=== PATIENT | female | born 1980 | race Caucasian/White ===

== ENCOUNTER 2021-01-29 11:56 | Outpatient (REF) | payer OTHER, SELFPAY ==
[2021-01-29 13:55] LABS: MANUAL DIFF FLAG NO
[2021-01-29 14:01] LABS: Basophils Percent Auto 0.3 % (0-2); Eosinophils Absolute Auto 0.2 X10*3/uL (0.0-0.4); Eosinophils Percent Auto 1.5 % (0-4); Hematocrit 44.1 % (37-47); Hemoglobin 14.4 g/dl (12.0-16.0); Imm Gran Abs Auto 0.03 X10*3/uL (0.00-0.03); Imm Gran Pct Auto 0.3 % (0.0-0.4); Lymphocytes Absolute Auto 1.8 X10*3/uL (1.2-4.9); Lymphocytes Percent Auto 16.5 % (20-40); Mean Corpuscular HGB Conc 32.7 g/dl (31.0-35.0); Mean Corpuscular Hemoglobin 32.5 pg (27.0-33.0); Mean Corpuscular Volume 99.5 fL (80-98); Mean Platelet Volume 10.4 fL (9.4-12.3); Monocytes Absolute Auto 0.9 X10*3/uL (0.1-1.2); Neutrophils Absolute Auto 7.9 X10*3/uL (2.0-8.3); Neutrophils Percent Auto 73.4 % (45-73); Platelet Count 287 X10*3/uL (160-400); Red Blood Count 4.43 X10*6/uL (4.20-5.50); Red Cell Distribution Width 15.3 % (11.0-16.0); White Blood Count 10.8 X10*3/uL (4.8-10.8)
[2021-01-29 14:10] LABS: Glucose Urine UA NEG (NEG); Leukocyte Esterase Urine NEG (NEG); Nitrite Urine NEG (NEG); PH 6.5 (5.0-8.0); Urine Blood 3+ (NEG); Urine Ketones NEG (NEG); Urine Protein NEG (NEG-TRACE)
[2021-01-29 14:17] LABS: Appearance Urine HAZY; Color Urine YELLOW
[2021-01-29 14:32] LABS: Alanine Aminotransferase 15 U/L (0-31); Albumin Level 4.8 g/dL (3.5-5.0); Alkaline Phosphatase 73 U/L (39-117); Anion Gap 18 (12-20); Aspartate Amino Transferase 26 U/L (5-31); Bilirubin Total 0.3 mg/dL (0.0-1.0); Blood Urea Nitrogen 13 mg/dL (9-16); Calcium 9.6 mg/dL (8.4-10.2); Carbon Dioxide 22 mmol/L (22-29); Chloride 103 mmol/L (96-108); Cholesterol 189 mg/dL; Estimated Glomerular Filt Rate > 60; Glucose Fasting 64 mg/dL (60-99); HDL Cholesterol 73 mg/dL; LDL Cholesterol Calculated 99 mg/dl; Potassium 4.7 mmol/L (3.3-5.1); Sodium 138 mmol/L (135-145); Total Protein 8.1 g/dL (6.5-8.0); Triglycerides 86 mg/dL
[2021-01-29 14:41] LABS: Mucus Urine 1+ /LPF; Squamous Epithelial Cell Urine 1+ /LPF
[2021-01-29 14:49] LABS: TSH reflex Free T4 0.62 uIU/mL (0.32-4.0)
== END 2021-01-29 11:57 | disposition home or self-care (01) ==
LOC: HO.HMGCLDS 11:56
PROVIDERS: PCP Internal Medicine; Visit Provider Internal Medicine
DX: Z00.00 Encounter for general adult medical examination without abnormal findings (principal); N63.0 Unspecified lump in unspecified breast; L50.9 Urticaria, unspecified; K42.9 Umbilical hernia without obstruction or gangrene; Z13.220 Encounter for screening for lipoid disorders; Z13.29 Encounter for screening for other suspected endocrine disorder
CPT/HCPCS: 36415; 80053; 80061; 81001; 84443; 85025

== ENCOUNTER 2021-03-03 14:27 | Outpatient (REF) | payer OTHER, SELFPAY ==
--- NOTE | ~2021-03-03 | MM_ITS ---
EXAMINATION: MM DIAGNOSTIC DIGITAL BREAST TOMOSYNTHESIS, BILATERAL US DIAGNOSTIC ULTRASOUND BREAST, RIGHT CLINICAL INFORMATION: Probable nodule noted by patient posterior upper outer right breast near axilla. Family history breast cancer in maternal grandmother. The lifetime risk of breast cancer based on the Tyrer-Cuzick Model is 18%. COMPARISON: Prior exam 05/08/2007 purged. Current study represents new baseline. TECHNIQUE: Digital breast tomosynthesis is performed in both the craniocaudal and mediolateral oblique views along with computer-aided detection (CAD). Synthesized 2D images are generated from the tomosynthesis. Additional exaggerated right CC view is provided. Ultrasound right breast is targeted to the area of clinical concern posterior upper outer right breast near the axilla. Patient is able to point to area of palpable concern at time of imaging. Grayscale imaging and color Doppler are performed without and with harmonics. FINDINGS: The breasts are extremely dense, which lowers the sensitivity of mammography (ACR BI-RADS breast composition Category d). There are no significant masses, abnormal calcifications, or other abnormalities. The axilla and skin contours are unremarkable. The symptom marker overlies small axillary node. Targeted right breast ultrasound demonstrates a small benign node at site of palpable concern 10:00 position with normal darwin architecture and normal color flow. Overall size is only 0.3 x 0.9 cm. There is no skin thickening or edema tracking in soft tissue planes. No hyperemia. No solid or cystic mass. Results are discussed with the patient at time of visit. MM/MM tomosynthesis diagnostic BI IMPRESSION: 1. No mammographic evidence of malignancy. 2. Small benign node at site of palpable concern right breast measuring 0.3 x 0.9 cm. ASSESSMENT: BI-RADS 2: Benign RECOMMENDATION: Routine annual mammography screening. This patient's information was entered into a reminder system with a target due date for their next mammogram.
== END 2021-03-03 14:28 | disposition home or self-care (01) ==
LOC: HO.MAMMO 14:27
PROVIDERS: Visit Provider Internal Medicine
DX: N63.11 Unspecified lump in the right breast, upper outer quadrant (principal)
CPT/HCPCS: 76642; 77062; 77066

== ENCOUNTER 2023-09-21 11:05 | Outpatient (REF) | payer OTHER, SELFPAY ==
[2023-09-21 13:23] LABS: MANUAL DIFF FLAG NO
[2023-09-21 13:31] LABS: Basophils Percent Auto 0.4 % (0-2); Eosinophils Absolute Auto 0.2 X10*3/uL (0.0-0.4); Eosinophils Percent Auto 2.2 % (0-4); Hematocrit 41.2 % (37.0-47.0); Hemoglobin 13.7 g/dl (12.0-16.0); Imm Gran Abs Auto 0.01 X10*3/uL (0.00-0.03); Imm Gran Pct Auto 0.1 % (0.0-0.4); Lymphocytes Absolute Auto 1.8 X10*3/uL (1.2-4.9); Lymphocytes Percent Auto 20.7 % (20-40); Mean Corpuscular HGB Conc 33.3 g/dl (31.0-35.0); Mean Corpuscular Hemoglobin 31.2 pg (27.0-33.0); Mean Corpuscular Volume 93.8 fL (80.0-98.0); Mean Platelet Volume 10.9 fL (9.4-12.3); Monocytes Absolute Auto 0.6 X10*3/uL (0.1-1.2); Monocytes Percent Auto 6.8 % (2-11); Neutrophils Absolute Auto 5.9 x10*3/uL (2.0-8.3); Neutrophils Percent Auto 69.8 % (45-73); Platelet Count 261 X10*3/uL (160-400); Red Blood Count 4.39 X10*6/uL (4.20-5.50); Red Cell Distribution Width 13.7 % (11.0-16.0); White Blood Count 8.5 X10*3/uL (4.8-10.8)
[2023-09-21 14:13] LABS: Alanine Aminotransferase 9 U/L (0-31); Albumin Level 4.2 g/dL (3.5-5.0); Alkaline Phosphatase 60 U/L (39-117); Anion Gap 10 (12-20); Aspartate Amino Transferase 20 U/L (5-31); Bilirubin Total 0.4 mg/dL (0.0-1.0); Blood Urea Nitrogen 8 mg/dL (9-16); Calcium 9.2 mg/dL (8.4-10.2); Carbon Dioxide 26 mmol/L (22-29); Chloride 105 mmol/L (96-108); Cholesterol 159 mg/dL (<200); Estimated Glomerular Filt Rate > 60; Glucose Fasting 139 mg/dL (60-99); HDL Cholesterol 54 mg/dL (>40); LDL Cholesterol Calculated 94 mg/dL (<100); Potassium 3.8 mmol/L (3.3-5.1); Sodium 137 mmol/L (135-145); TSH reflex Free T4 0.33 uIU/mL (0.32-4.0); Total Protein 7.1 g/dL (6.5-8.0); Triglycerides 56 mg/dL (<150)
== END 2023-09-21 11:06 | disposition home or self-care (01) ==
LOC: HO.HMGCLDS 11:05
PROVIDERS: PCP Internal Medicine; Visit Provider Internal Medicine
DX: Z00.00 Encounter for general adult medical examination without abnormal findings (principal)
CPT/HCPCS: 36415; 80053; 80061; 84443; 85025

== ENCOUNTER 2024-01-02 13:15 | Outpatient (AMB) | payer OTHER, SELFPAY ==
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
[2024-01-02 13:17] VITALS: BP 94/62; PULSE 101; O2SAT 97; BMI 18.1
== END 2024-01-02 14:27 | disposition home or self-care (01) ==
PROVIDERS: PCP Internal Medicine; Visit Provider Internal Medicine
DX: Z00.00 Encounter for general adult medical examination without abnormal findings (principal); M54.50 Low back pain, unspecified; F41.9 Anxiety disorder, unspecified; F32.9 Major depressive disorder, single episode, unspecified; R10.9 Unspecified abdominal pain; R73.9 Hyperglycemia, unspecified; E55.9 Vitamin D deficiency, unspecified
CPT/HCPCS: 96127; 99396

== ENCOUNTER 2024-01-02 14:25 | Outpatient (REF) | payer OTHER, SELFPAY ==
[2024-01-08 11:04] LABS: HPV mRNA E6/E7 Detected (Not Detected)
== END 2024-01-02 14:26 | disposition home or self-care (01) ==
LOC: HO.LNP 14:25
PROVIDERS: Visit Provider Internal Medicine
DX: Z12.4 Encounter for screening for malignant neoplasm of cervix (principal); Z11.51 Encounter for screening for human papillomavirus (HPV)
CPT/HCPCS: 87624; 88142

== ENCOUNTER 2024-02-23 17:41 | Emergency (ER) | payer OTHER, SELFPAY ==
[2024-02-23 18:55] VITALS: BP 110/76; PULSE 85; RESP 18; TEMP 37.1; O2SAT 98; BMI 17.8
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
[2024-02-23 19:16] LABS: MANUAL DIFF FLAG NO
[2024-02-23 19:34] LABS: Basophils Percent Auto 0.2 % (0-2); Eosinophils Percent Auto 0.2 % (0-4); Hematocrit 42.4 % (37.0-47.0); Hemoglobin 14.4 g/dl (12.0-16.0); Imm Gran Abs Auto 0.06 X10*3/uL (0.00-0.03); Imm Gran Pct Auto 0.4 % (0.0-0.4); Lymphocytes Absolute Auto 1.9 X10*3/uL (1.2-4.9); Lymphocytes Percent Auto 11.9 % (20-40); Mean Corpuscular Hemoglobin 31.4 pg (27.0-33.0); Mean Corpuscular Volume 92.6 fL (80.0-98.0); Mean Platelet Volume 10.1 fL (9.4-12.3); Monocytes Absolute Auto 0.9 X10*3/uL (0.1-1.2); Monocytes Percent Auto 5.7 % (2-11); Neutrophils Absolute Auto 13.3 x10*3/uL (2.0-8.3); Neutrophils Percent Auto 81.6 % (45-73); Platelet Count 214 X10*3/uL (160-400); Red Blood Count 4.58 X10*6/uL (4.20-5.50); Red Cell Distribution Width 14.4 % (11.0-16.0); White Blood Count 16.2 X10*3/uL (4.8-10.8)
[2024-02-23 19:38] LABS: Alanine Aminotransferase 15 U/L (0-31); Albumin Level 4.2 g/dL (3.5-5.0); Alkaline Phosphatase 73 U/L (39-117); Anion Gap 14 (12-20); Aspartate Amino Transferase 18 U/L (5-31); Bilirubin Total 0.4 mg/dL (0.0-1.0); Blood Urea Nitrogen 7 mg/dL (9-16); Calcium 9.3 mg/dL (8.4-10.2); Carbon Dioxide 25 mmol/L (22-29); Chloride 104 mmol/L (96-108); Creatinine Clr Calc Pharmacy 79.9; Estimated Glomerular Filt Rate > 60; Glucose Random 84 mg/dL (60-115); Potassium 3.7 mmol/L (3.3-5.1); Sodium 139 mmol/L (135-145); Total Protein 7.1 g/dL (6.5-8.0)
[2024-02-23 21:57] VITALS: BP 99/59; PULSE 68; RESP 19; TEMP 36.8; O2SAT 97
[2024-02-23] MEDS: Fluconazole 150 MG TABLET PO (23:13)
[2024-02-23] MEDS: cephALEXin 500 MG CAPSULE 1000 MG PO (23:13)
[2024-02-23 23:20] LABS: C Reactive Protein 0.35 mg/dL (< or = 0.50)
[2024-02-23] MEDS: Ondansetron ODT 4 MG TAB.RAPDIS TRANSLINGU (23:25)
[2024-02-23 23:31] VITALS: BP 107/60; PULSE 71; RESP 16; TEMP 37; O2SAT 100
== END 2024-02-23 23:33 | disposition home or self-care (01) ==
PROVIDERS: Physician Assistant; Emergency Provider Emergency Medicine
DX: B35.3 Tinea pedis (principal)
CPT/HCPCS: 36415; 80053; 85025; 86140; 99282; 99283

== ENCOUNTER 2024-03-29 20:33 | Emergency (ER) | payer OTHER, SELFPAY ==
--- NOTE | ~2024-03-29 | XR_ITS ---
EXAMINATION: XR LUMBOSACRAL SPINE CLINICAL INFORMATION: Fall. Pain. COMPARISON: Lumbar spine radiographs dated 09/18/2018. TECHNIQUE: Three views of the lumbosacral spine. FINDINGS: There is lumbar scoliosis, concave towards the right side. The degree of curvature appears similar to that seen on the 09/18/2018 radiographs. In the sagittal projection there is grade 1 anterolisthesis of L4 in relation to L5. There is retrolisthesis of L3 in relation to L4 and retrolisthesis of L2 in relation to L3. There is multilevel degenerative disc disease most pronounced at L4-L5 and L5-S1. There is facet arthropathy. Vertebral body heights are maintained. No definite acute fracture is identified. The sacroiliac joints appear maintained. XR/XR lumbar spine 2-3V IMPRESSION: No convincing acute osseous lumbar spine abnormality. There is grossly stable levoscoliosis of the lumbar spine. Multilevel degenerative disc disease is demonstrated and appears to have progressed since the prior examination.
[2024-03-29 20:59] VITALS: BP 128/75; PULSE 72; RESP 20; TEMP 36.6; O2SAT 99; BMI 17.4
--- NOTE | 2024-03-29 22:26 | ED_ITS ---
HPI - Fall General Chief Complaint: Fall Stated Complaint: fell on tuesday Time Seen by Provider: 03/29/24 22:26 Source: patient Mode of arrival: ambulatory History of Present Illness ED Provider: Marine Major PA-C HPI Narrative: 43 yo female with history of sciatica presents for evaluation of lower back pain s/p mechanical fall on Sunday 03/25. The patient states she was running sideways and tripped over a curb, causing her to fall backwards over a concrete parking block into a parked car. She states she hit the right side of her back against the car. She denies head trauma or additional injuries. Not on blood thinners. She is tearful at bedside and describes the pain as 10/10. The pain radiates into bilateral lower extremities and she endorses associated paresthesias. 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 Pain increases with any sort of movement. States she has not been able to sleep due to the pain. She has taken Aleve with no relief. Last dose was Tuesday. She has tried heat and ice with no relief. She denies additional symptoms at this time. MD complaint: fall Onset (ago): day(s) Fall from: other (Running and tripped ) Place fall occurred: street Loss of consciousness: none Prolonged down time: no Symptoms prior to fall: none Context: tripped/slipped Location of injury: back Severity: severe Severity scale (1-10): 10 Associated symptoms (after fall): numbness Related Data Previous Rx's ?Medication ?Instructions ?Recorded hydroxyzine HCl 10 mg tablet 10 mg PO TID PRN anxiety #10 tabs 03/24/22 trazodone 50 mg tablet 50 mg PO BEDTIME PRN insomnia #90 02/02/23 tabs buspirone 15 mg tablet 15 mg PO BID #180 tabs 01/02/24 citalopram 20 mg tablet 20 mg PO DAILY #90 tabs 01/02/24 clobetasol 0.05 % topical cream 1 appl topical DAILY #45 grams 01/02/24 cephalexin 500 mg capsule 500 mg PO QID 7 days #28 caps 02/23/24 miconazole nitrate 2 % topical 1 appl topical BID #30 grams 02/23/24 cream (Antifungal (miconazole)) ondansetron 4 mg disintegrating 4 mg PO Q8H PRN nausea and 02/23/24 tablet vomiting #7 tabs cyclobenzaprine 10 mg tablet 10 mg PO TID PRN muscle spasm #14 03/30/24 tabs lidocaine 5 % topical patch 1 patch topical DAILY #15 ea 03/30/24 Allergies Allergy/AdvReac Type Severity Reaction Status Date / Time aspirin Allergy Unknown Hives Verified 03/29/24 21:05 Review of Systems Review of Systems: Yes all other systems are reviewed and are negative [facility] Past Medical History Medical History Umbilical hernia Hives Breast lump Annual physical exam Anxiety and depression Chronic lower back pain Knee fracture, right Migraine Family History Family History Paternal Grandmother Breast cancer Depression Sister No problems noted. Sister No problems noted. Son No problems noted. Maternal Aunt Breast cancer Social History Social History Housing: Apartment Patient Tobacco Use Status: Current everyday Tobacco user Tobacco use type: Cigarette Cigarettes Per Day: 20 Smoked in Last 30 Days: Yes e-Cigarette/Vaping Use: Never Used Substance Use Type: Marijuana Substance Use Frequency: Daily Advance Directives: No Advance Directives Information Provided: No Do you have a plan to hurt others: No Plan Patient : No Current occupational status: unemployed Cognitive needs: No Hearing needs: No Vision needs: Yes Physical Exam Vital Signs: Vital Signs: Last Vital Signs Temp 97.0 F 03/30/24 01:26 Pulse 54 03/30/24 01:26 Resp 16 03/30/24 01:26 BP 106/62 03/30/24 01:26 Pulse Ox 98 03/30/24 01:26 O2 Del Method Room Air 03/30/24 01:26 BMI result Body Mass Index 17.4 Appearance: Alert. Oriented X3. No acute distress. Appears uncomfortable. Tearful lying in ED stretcher. Head: normocephalic, atraumatic. Eyes: Pupils equal, round and reactive to light. ENT: Pharynx normal. Neck: Normal inspection. Neck supple. CVS: Normal heart rate and rhythm. Pulses normal. Respiratory: No respiratory distress. Abdomen: Soft and nontender. Skin: Skin warm and dry. Normal skin color. Normal skin turgor. No rashes. Extremities: No lower extremity edema. No joint swelling. Tenderness to palpation diffusely from thoracic to lumbosacral region. No erythema, edema, or ecchymosis. Neuro/psych: Oriented X 3. No motor deficit. No sensory deficit. CN II-XII intact. Normal speech and cognition. Medications Administered Discontinued Medications Generic Name Dose Route Start Last Admin Trade Name Jonny PRN Reason Stop Dose Admin Acetaminophen 975 mg 03/29/24 22:35 03/29/24 23:14 Acetaminophen 325 Mg Tablet PO 03/29/24 22:36 975 mg ONCE ONE Administration Cyclobenzaprine HCl 10 mg 03/30/24 00:16 03/30/24 00:47 Cyclobenzaprine Hcl 10 Mg Tablet PO 03/30/24 00:17 10 mg ONCE ONE Administration Lidocaine 1 patch 03/29/24 22:35 03/29/24 23:14 Lidocaine 4 % Patch Adh..Patch TRANSDERMA 03/29/24 22:36 1 patch ONCE ONE Administration Protocol Oxycodone HCl 5 mg 03/29/24 22:35 03/29/24 23:14 Oxycodone Hcl Immed Release 5 Mg Tablet PO 03/29/24 22:36 5 mg ONCE ONE Administration Oxycodone HCl 5 mg 03/30/24 00:16 03/30/24 00:48 Oxycodone Hcl Immed Release 5 Mg Tablet PO 03/30/24 00:17 5 mg ONCE ONE Administration Medical Decision Making Medical Decision Making MDM Narrative: 43 yo female with history of sciatica presents for evaluation of lower back pain s/p mechanical fall on Sunday 03/25. The patient states she was running sideways and tripped over a curb, causing her to fall backwards over a concrete parking block into a parked car. She states she hit the right side of her back against the car. Patient describes 10/10 pain. Vitals within normal limits. Lumbar spine x-ray revealed no acute abnormalities. Stable levoscoliosis of the lumbar spine and multilevel degenerative disc disease. patient required 2 doses of oxycodone and Flexeril for her pain to be under control. She was feeling better After medication. She is stable for discharge home, most likely muscular strain and spasm. No evidence of acute trauma on exam. Differential Diagnosis Differential Diagnoses: The differential diagnosis associated with the presentation includes Lumbar strain, lumbar contusion, sciatica. Low suspicion for spinal hematoma. Independent Interpretation I performed an independent interpretation of an: Plain X-Ray Interpretation: No acute fracture, agree with radiology read Radiology Impression Discussion of test interpretation with radiology: I have reviewed the radiologist's reading. Radiologist Impression: EXAMINATION: XR LUMBOSACRAL SPINE CLINICAL INFORMATION: Fall. Pain. COMPARISON: Lumbar spine radiographs dated 09/18/2018. TECHNIQUE: Three views of the lumbosacral spine. FINDINGS: There is lumbar scoliosis, concave towards the right side. The degree of curvature appears similar to that seen on the 09/18/2018 radiographs. In the sagittal projection there is grade 1 anterolisthesis of L4 in relation to L5. There is retrolisthesis of L3 in relation to L4 and retrolisthesis of L2 in relation to L3. There is multilevel degenerative disc disease most pronounced at L4-L5 and L5-S1. There is facet arthropathy. Vertebral body heights are maintained. No definite acute fracture is identified. The sacroiliac joints appear maintained. XR/XR lumbar spine 2-3V IMPRESSION: No convincing acute osseous lumbar spine abnormality. There is grossly stable levoscoliosis of the lumbar spine. Multilevel degenerative disc disease is demonstrated and appears to have progressed since the prior examination. External Record Review External record reviewed: Office record, Outpatient record and Prior outpatient labs Tests considered The following testing was considered but not selected: CT scan of the abdomen and pelvis was considered to assess for traumatic internal injuries/ RP hematoma however exam, mechanism, vital signs, time frame not consistent with this Prescription Management I considered prescription management with: Pain Medication Critical Care Time Critical Care Time Critical Care Time: No Discharge Plan Discharge Clinical Impression: Acute lumbar myofascial strain Qualifiers: Encounter type: initial encounter Qualified Code(s): S39.012A - Strain of muscle, fascia and tendon of lower back, initial encounter Patient Disposition: Home, Self-Care Instructions: Low Back Strain (ED), Lower Back Exercises (ED) Additional Instructions: Your x-ray today did not show any broken bones or evidence of traumatic injury. Your pain is most likely due to muscle strain and spasm. Minimize bending, lifting or twisting. Use ice several times per day for 20 minutes at a time for the next 48 hours and then change to heat. Take medications as prescribed to help with pain and discomfort. Follow up with your Primary Care Doctor this week. If your pain worsens, if you develop new numbness, tingling, weakness, loss of function or incontinence call 911 or come back to the ER right away for evaluation. Prescriptions: New cyclobenzaprine 10 mg tablet 10 mg PO TID PRN (Reason: muscle spasm) Qty: 14 0RF lidocaine 5 % adhesive patch,medicated 1 patch topical DAILY Qty: 15 0RF Rx Instructions: leave on most painful area for up to 12 hrs No Action hydroxyzine HCl 10 mg tablet 10 mg PO TID PRN (Reason: anxiety) Qty: 10 0RF trazodone 50 mg tablet 50 mg PO BEDTIME PRN (Reason: insomnia) Qty: 90 3RF miconazole nitrate [Antifungal (miconazole)] 2 % cream 1 appl topical BID Qty: 30 0RF cephalexin 500 mg capsule 500 mg PO QID 7 Days Qty: 28 0RF ondansetron 4 mg tablet,disintegrating 4 mg PO Q8H PRN (Reason: nausea and vomiting) Qty: 7 0RF buspirone 15 mg tablet 15 mg PO BID Qty: 180 4RF citalopram 20 mg tablet 20 mg PO DAILY Qty: 90 3RF clobetasol 0.05 % cream 1 appl topical DAILY Qty: 45 2RF Referrals: Barb Campos MD [Primary Care Provider] - Stand Alone Forms: Work/School Release Interventions: ED Discharge Assessment Last Done: 03/30/24 01:26 Discharge Date/Time: 03/30/24 01:27 Print Language: Hungarian
[2024-03-29] MEDS: Lidocaine 4 % Patch ADH..PATCH 1 PATCH TRANSDERMA (23:14)
[2024-03-29] MEDS: Acetaminophen 325 MG TABLET 975 MG PO (23:14)
[2024-03-29] MEDS: oxyCODONE HCl Immed Release 5 MG TABLET PO (23:14)
[2024-03-30 00:11] VITALS: BP 105/66; PULSE 56; RESP 16; TEMP 36.7; O2SAT 100
[2024-03-30] MEDS: Cyclobenzaprine HCl 10 MG TABLET PO (00:47)
[2024-03-30] MEDS: oxyCODONE HCl Immed Release 5 MG TABLET PO (00:48)
[2024-03-30 01:15] VITALS: BP 106/62; PULSE 54; RESP 16; TEMP 36.1; O2SAT 98
[2024-03-30 01:26] VITALS: BP 106/62; PULSE 54; RESP 16; TEMP 36.1; O2SAT 98
== END 2024-03-30 01:27 | disposition home or self-care (01) ==
PROVIDERS: Emergency Provider Emergency Medicine; PCP Internal Medicine
DX: S39.012A Strain of muscle, fascia and tendon of lower back, initial encounter (principal); W01.0XXA Fall on same level from slipping, tripping and stumbling without subsequent striking against object, initial encounter; Y93.9 Activity, unspecified; Y92.9 Unspecified place or not applicable; Y99.9 Unspecified external cause status
CPT/HCPCS: 72100; 99283; 99284

== ENCOUNTER 2025-01-28 09:07 | Outpatient (AMB) | payer OTHER, SELFPAY ==
[2025-01-28 09:11] VITALS: BP 120/66; PULSE 77; RESP 16; TEMP 36.9; O2SAT 97; BMI 17.9
--- NOTE | 2025-01-28 09:11 | MHC.PC.OV ---
Vital Signs 01/28/25 09:11 Height 5 ft 6 in Weight 111 lb BMI 17.9 BP 120/66 Blood Pressure Location Rt brachial Position Sitting Respiration 16 Pulse 77 Pulse Source Pulse Oximeter Temp 98.4 F Temp Source Oral Pulse Oximetry (%) 97 Oxygen Delivery Method Room Air Intake Visit Reasons: Menopause Intake Note: Pt is here today for a sick visit. Pt c/o menopause symptoms. Pt states that she tried estradiol patches and they have been working well.Pt also states that she has lower back pain that goes down her legs. Allergies aspirin Allergy (Unknown, Verified 01/28/25 09:11) Hives Medication List - Last Reconciled 01/28/25 by Barb Campos MD buspirone 15 mg PO BID citalopram 20 mg PO DAILY lidocaine 5% 1 patch topical DAILY trazodone 50 mg PO BEDTIME PRN Tobacco use date assessed: 01/28/25 Dental Screening Dental Screen Date: 01/28/25 Did you have a dental visit in the last 12 months?: Yes Did you have a dental problem in the last 6 months where you did not have access to dental care?: No Was dental information given to patient?: Patient has dentist HPI Menopause HPI Details Patient presents complaining of worsening hot flashes night sweats insomnia. She had try [id number] Estroven and herbal remedies without improvement. Her last menstrual period was over 7 months ago. Patient would like to try hormonal replacement. Chronic anxiety and depression are stable on current medications.. Patient complains of chronic lower back pain radiating to both lower extremities worse when waking up in the morning. She will try physical therapy without significant improvement. She denies any weakness or numbness in lower extremities change in bladder or bowel function. [facility] Medical History Umbilical hernia Hives Breast lump Annual physical exam Anxiety and depression Chronic lower back pain Knee fracture, right Migraine Family History Paternal Grandmother Breast cancer Depression Sister No problems noted. Sister No problems noted. Son No problems noted. Maternal Aunt Breast cancer Social History (Updated 01/28/25 @ 18:49 by Barb Campos MD) Housing: Apartment Patient Tobacco Use Status: Former Tobacco user Tobacco use type: Cigarette Cigarettes Per Day: 20 e-Cigarette/Vaping Use: Never Used Substance Use Type: Marijuana Current occupational status: unemployed Cognitive needs: No Hearing needs: No Vision needs: Yes Questionnaire PHQ-9 Over the last 2 weeks, how often have you been bothered by any of the following problems? 1. Little interest or pleasure in doing things: not at all 2. Feeling down, depressed, or hopeless: more than half the days 3. Trouble falling or staying asleep, or sleeping too much: nearly every day 4. Feeling tired or having little energy: several days 5. Poor appetite or overeating: not at all 6. Feeling bad about yourself - or that you are a failure or have let yourself or your family down: not at all 7. Trouble concentrating on things, such as reading the newspaper or watching television: more than half the days 8. Moving or speaking so slowly that other people could have noticed. Or the opposite - being so fidgety or restless that you have been moving around a lot more than usual: not at all 9. Thoughts that you would be better off or of hurting yourself in some way: not at all Total score: 8 Depression Screening Interpretation: Negative Depression Screening Done: Yes 22098 - PHQ-9 Billing: Yes Source: Developed by Drs. Fransisco Guerra, Ling Gil, Juan Carlos Natarajan and colleagues, with an educational niko from [employer]. Thrive Questionnaire Date Thrive assessed: 01/28/25 I am a: Patient What is your living situation today?: I have a steady place to live Within the past 12 months, did the food you bought not last and you didn't have the money to get more?: Sometimes True Within the past 12 months, did you worry whether your food would run out before you got money to buy more?: Sometimes True Do you have trouble paying for medicines?: No Do you have trouble getting transportation to medical appointments?: No Do you have trouble paying your heating and electricity bill?: No Do you have trouble taking care of your child, family member or friend?: No Do you have trouble with day-to-day activities such as bathing, preparing meals, shopping, managing finances, etc.?: No Are you currently unemployed and looking for a job?: Yes Are you interested in more education?: No Please select the resources that you would like help with: Housing/Intermediate, Food, Utilities and Job search/training Currently or been in a relationship where the following occur: No concerns reported THRIVE Score: 2 AUDIT C Alcohol Use Questionnaire (AUDIT-C) 1. How often do you have a drink containing alcohol?: 2-3 times a week 2. How many drinks containing alcohol do you have on a typical day when you are drinking?: 1 or 2 3. How often do you have six or more drinks on one occasion?: Less than monthly Total Score: 4 SHAD-7 AMB Questionnaire SHAD-7 Date SHAD - 7 assessed: 01/28/25 Feeling nervous, anxious, or on edge: 3 = Nearly every day Not being able to stop or control worryin = Nearly every day Worrying too much about different things: 3 = Nearly every day Trouble relaxin = Nearly every day Being so restless that it is hard to sit still: 3 = Nearly every day Becoming easily annoyed or irritable: 3 = Nearly every day Feeling afraid as if something awful might happen: 0 = Not at all Total SHAD-7 score (0-4 normal; 5-9 mild; 10-14 moderate; 15-21 severe): 18 Source: Developed by Drs. Fransisco Guerra, Ling Gil, Juan Carlos Natarajan and colleagues, with an educational niko from [employer]. SHAD-7 Assessment Billing SHAD-7 Assessment Tool: SHAD-7 Assessment 20325 Review of Systems Const All systems reviewed & are unremarkable except as noted in HPI and below Eyes Reports no additional complaints ENT Reports no additional complaints Card Reports no additional complaints Resp Reports no additional complaints GI Reports no additional complaints Reports no additional complaints Physical exam (Primary Care) Vital Signs: Last Vital Signs Temp 98.4 F 01/28/25 09:11 Pulse 77 01/28/25 09:11 Resp 16 01/28/25 09:11 BP 120/66 01/28/25 09:11 Pulse Ox 97 01/28/25 09:11 Oxygen Delivery Method Room Air 01/28/25 09:11 BMI result Body Mass Index 17.9 Tobacco/Smoking Status: Tobacco use Status Tobacco use date assessed 01/28/25 01/28/25 09:22 Patient Tobacco Use Status Current everyday Tobacco 01/28/25 09:22 Tobacco use type Cigarette 01/28/25 09:22 e-Cigarette/Vaping Use Never Used 01/28/25 09:22 PHQ-9: PHQ-9 Score PHQ-9: Total score 8 01/28/25 09:22 Depression Screening Interpretation: Negative Thrive Assessment: Date of Thrive Assessment Date Thrive assessed 01/28/25 01/28/25 09:22 Currently or been in a relationship where the following occur: No concerns reported Const General: no acute distress HENMT Head: Yes normal to inspection Face and sinus: Yes normal facial exam Eyes General: appearance normal, both eyes and all related structures Resp Effort & Inspection: normal respiratory effort Auscultation: clear to auscultation bilaterally Cardio Rhythm: regular rhythm Heart sounds: S1 normal heart sound present and S2 normal heart sound present GI Inspection: Yes normal to inspection Palpation (GI): Soft to palpation Back/Spine/Pelvis Other: There is paraspinal tenderness lower lumbar region, straight leg rising 90 degrees bilaterally. Deep tendon reflexes 1+ bilaterally Coding Level of Care Code Est Pt Level 4 (09978) Diagnoses Degenerative joint disease (DJD) of lumbar spine M47.816 Menopause Z78.0 Additional Codes SHAD-7 Assessment Billing - SHAD-7 Assessment Tool: SHAD-7 Assessment 95908 ([id number]) PHQ-9 - 43792 - PHQ-9 Billing: Yes ([id number]) Assessment & Plan Assessment & Plan (1) Degenerative joint disease (DJD) of lumbar spine: Comment: L spine XR multiple-level degenerative changes 03/2024 Code(s): M47.816 - Spondylosis without myelopathy or radiculopathy, lumbar region Category: Medical Plan: Referred to [email or web address] (2) Menopause: Code(s): Z78.0 - Asymptomatic menopausal state Category: Medical Plan: She will Start estradiol 0.025 mg weekly with progesterone 100 mg daily. Patient was advised that smoking increases her risk of a complications including MO and stroke, patient will return for physical in a Pap smear in 1 month with a fasting blood work before Orders: Orders Comprehensive [place]. Panel Fast Today E55.9 - Vitamin D deficiency, unspecified, R73.9 - Hyperglycemia, unspecified, Z00.00 - Encounter for general adult medical examination without abnormal findings Complete Blood Count Auto Diff Today E55.9 - Vitamin D deficiency, unspecified, R73.9 - Hyperglycemia, unspecified, Z00.00 - Encounter for general adult medical examination without abnormal findings Vitamin D 25-OH Total Today E55.9 - Vitamin D deficiency, unspecified, R73.9 - Hyperglycemia, unspecified, Z00.00 - Encounter for general adult medical examination without abnormal findings MM screening mammo BI Today Z12.31 - Encounter for screening mammogram for malignant neoplasm of breast Lipid Panel Today E55.9 - Vitamin D deficiency, unspecified, R73.9 - Hyperglycemia, unspecified, Z00.00 - Encounter for general adult medical examination without abnormal findings TSH reflex Free T4 Today E55.9 - Vitamin D deficiency, unspecified, R73.9 - Hyperglycemia, unspecified, Z00.00 - Encounter for general adult medical examination without abnormal findings UA w Microscopic Today E55.9 - Vitamin D deficiency, unspecified, R73.9 - Hyperglycemia, unspecified, Z00.00 - Encounter for general adult medical examination without abnormal findings Referrals Pain Management Referral M47.816 - Spondylosis without myelopathy or radiculopathy, lumbar region Medications: New epinephrine for 2 doses 0.3 mg (0.3 mL) IM Q10M PRN 2 ea 3RF anaphylaxis estradiol 1 patch transdermal QWEEK 4 ea 2RF progesterone micronized 100 mg PO QAM 90 caps 0RF Refilled buspirone 15 mg PO BID 180 tabs 4RF citalopram 20 mg PO DAILY 90 tabs 3RF
== END 2025-01-28 14:04 | disposition home or self-care (01) ==
LOC: HO.HMCC 09:08
PROVIDERS: PCP Internal Medicine; Visit Provider Internal Medicine
DX: M47.816 Spondylosis without myelopathy or radiculopathy, lumbar region (principal); Z78.0 Asymptomatic menopausal state

== ENCOUNTER → 2025-01-28 09:07 | Outpatient (BNVA) | payer OTHER, SELFPAY | PROVIDERS: PCP Internal Medicine; Visit Provider Internal Medicine | DX: M47.816 Spondylosis without myelopathy or radiculopathy, lumbar region (principal); Z78.0 Asymptomatic menopausal state | CPT/HCPCS: 96127; 99212 ==